=== PATIENT | female | born 2000 | race Caucasian/White ===

== ENCOUNTER 2019-09-26 09:01 | Day surgery (SDC) | payer OTHER, SELFPAY ==
[2019-05-13 13:04] VITALS: BMI 19.5
--- NOTE | 2019-09-11 08:24 | HP_ITS ---
Intake Intake Visit Reasons: L ABD PAIN/CT @ [facility] Chief Complaint: Belly pain and vomiting for last day Allergies No Known Allergies Allergy (Verified 09/10/19 14:35) Medications etonogestrel-ethinyl estradiol 0.12 mg -0.015 mg/24 hr vaginal ring 1 vag ring VAGINAL Q4W #1 ea 05/20/18 [Rx Confirmed 09/10/19] PFSH Medical History Appendicitis (Acute) Surgical History S/P appendectomy (Resolved) Family History Grandmother Diabetes Breast cancer Bone cancer Father Hypertension Social History (Updated 09/11/19 @ 08:24 by Lisy Marquez MD) Smoking Status: Never smoker alcohol intake: never substance use type: does not use caffeine: Yes what type of physical activity do you participate in: none seatbelt use: always do you feel safe at home: Yes additional social history: Single HPI HPI HPI: DESIREE NELSON, is a 18 F who presents to the office today for HPI HPI Surgical H&P: Yes HPI: DESIREE NELSON, is a 18 F who presents to the office today for lower abdominal pain/bilateral inguinal hernias. Patient states her constipation has been better does have a CAT scan from 08/27/1019 due to having episodes of lower abdominal pain. Patient did have some constipation on the CT. Patient states about 2 weeks ago she had some left lower quadrant pain that was between her umbilicus and groin and she did have several bowel movements after that night resolved within 3 to 4 hours. Patient also states that with activity she has bilateral groin pain she did notice during a 2 mile run for her PT testing she had some sharp left lower quadrant pain that was an 8/9 and she was not able to really complete her 2 mile run. Patient states she does take MiraLAX about 3 times a week has about 20 g of fiber daily has not been using stool softeners. Patient states she will occasionally see small bulge in the left groin which does go away on its own. ROS General General: No fatigue Cardio Cardiovascular: No chest pain Resp Respiratory: No shortness of breath Gastro Gastrointestinal: Yes abdominal pain, No nausea or vomiting, No diarrhea, Yes constipation, No blood in stool, No acid reflux, No hemorrhoids, No ulcers, No gallbladder problem Exam Const General: cooperative, comfortable, no acute distress Resp Effort & Inspection: normal respiratory effort Cardio Rate: regular rate GI Inspection: non-distended Palpation: soft, no guarding, nontender Other: Left inguinal: No obvious bulge or hernia on exam, right inguinal: No obvious bulge or hernia on exam. Patient did have inguinal hernias seen during her laparoscopic appendectomy. Assessment & Plan Problems 1. Bilateral lower abdominal pain R10.31; R10.32 2. Bilateral inguinal hernia K40.20 3. Constipation K59.00 Plan Patient continues to take MiraLAX about 3 times a week and does try to increase her fiber in her diet. Plan for laparoscopic bilateral inguinal hernia with mesh. Reviewed the procedure with the patient including the risks, including but not limited to infection, bleeding, paresthesia, chronic pain, injury to small bowel, and recurrence. All questions were answered. Patient no further questions this time. Lisy Marquez M.D. Pager: [phone] [facility] [address] [place] [address], [address] [place] [address] Office: [phone] Plan Detail Follow Up We will schedule surgery Coding Level of Care Code Off vis,est,level 3 Diagnoses Bilateral lower abdominal pain R10.31; R10.32 Bilateral inguinal hernia K40.20 Constipation K59.00 09/11/19 0824 <Electronically signed by Lisy Lemons am, MD> Date _ Lisy Marquez MD I have examined the patient the following changes are noted: Patient still having issues with constipation she did do a magnesium citrate yesterday however did not have much results but did state prior to yesterday she was not constipated.
[2019-09-26] VITALS (8 sets, daily range): BP systolic 110–140; BP diastolic 57–72; PULSE 58–109; RESP 15–16; TEMP 36.6–37; O2SAT 98–100; BMI 20.1
[2019-09-26 09:33] LABS: Internal QC Validated? YES +Cl - CLEAR BKGD; Pregnancy, Urine Negative Negative
[2019-09-26] MEDS: Lactated Ringers 1,000 ML 100 ML IV ×2 (09:39→13:21)
[2019-09-26] MEDS: Cefazolin 2 GM in 0.9% Normal Saline 100 ML IV (10:15)
--- NOTE | 2019-09-26 12:34 | OP.PCM_ITS ---
Report of Operation Date of Procedure: 09/26/19 Pre-Operative Diagnosis: Bilateral indirect inguinal hernias Post-Operative Diagnosis: Same Surgery/Procedure Performed:: Laparoscopic bilateral inguinal hernia repairs with mesh market research lead: Whitney Hampton Type of Anesthesia:: General/Supplemental Anesthesiologist: Zackary Sanchez Special Medications: Ancef 2 grams IV x1 Specimen's removed: None Estimated Blood Loss (mL): < 10 cc Fluids Replaced: 1150 cc Description of Procedure: Indications: 18-year-old female presented with bilateral inguinal hernias which were symptomatic. Laparoscopic bilateral inguinal hernia repair with mesh was elected patient was agreeable. Description of procedure: Patient was brought to operating room placed supine operative table. Timeout was completed verifying correct patient, procedure, site, positioning, special, prior to beginning procedure. General anesthesia was induced. Mishra catheter was placed. Patient's arms were tucked and padded appropriately. Midline infraumbilical incision was made with a 15 blade scalpel. The fascia was elevated and incised. Entry into the abdomen was confirmed visually. The Mosley trocar was placed. Laparoscope was placed. Verifying no injury during initial trocar placement. Patient was placed in Trendelenburg position. Two 5 mm trochars were placed lateral to the rectus sheath under direct visualization. Both the inguinal regions were inspected and bilateral indirect hernias were seen. Both procedures were done similarly. Started with the left inguinal hernia. The median umbilical ligament was divided sharply with electrocautery. Peritoneum was incised with the endoscopic scissors along a line 2 cm above the superior edge of the hernia defect extending from the median umbilical ligament to anterior superior iliac spine. Peritoneal flap was mobilized inferiorly using blunt and sharp dissection. The inferior epigastric vessels were exposed and symphysis pubis and identified. Geronimo's ligament was identified. Dissection was continued inferiorly to the iliopubic track with care taken to avoid injury to the femoral branch of the genitofemoral nerve and lateral femoral cutaneous nerve. Round ligament was identified and clips were placed and it was divided. The indirect hernia sac was mobilized and reduced into the peritoneal cavity. A large size Bard 3D max mesh left was used. The mesh was rolled longitudinally into a compact cylinder and passed through the trocar. The cylinder was placed along the inferior aspect of the working space and unrolled into place to completely cover the direct, indirect and femoral spaces. The mesh was secured in place medially to Geronimo's ligament using the pro- tacker as well as to the anterior abdominal wall. Care was taken to avoid the inferolateral triangle containing iliac vessels and genital nerves. The right side was done similarly. The Bard 3D max mesh medium right was used. Again this was tacked with a pro-tacker to Geronimo's ligament medially and laterally and superiorly to the anterior abdominal wall. The peritoneal flap was closed over both meshes and secured with tacks in similar positions of safety using the SecureStrap. After ensuring adequate hemostasis, the trochars were removed and pneumoperitoneum allowed to escape. The infraumbilical trocar incision was closed with a 0 Vicryl figure of 8 suture. The skin was closed with 4-0 Monocryl interrupted sutures and Steri-Strips. Patient tolerated procedure well was taken to the postanesthesia care unit in stable condition. Grafts/Implants Used: Left large Bard 3D max lot [id number] REF [id number], right medium Bard 3D max lot [id number] [id number] Grafts/Implants Used: Left large Bard 3D max lot [id number], right medium Bard 3D max [id number] - Complications none
--- NOTE | 2019-09-26 12:36 | DCINST_ITS ---
Discharge Diet: Light diet - advance as tolerated Discharge Activity: May not drive while taking narcotic pain medications. Lifting Restrictions: No lifting greater than 20 pounds x 2 weeks Call your doctor if your incision/area has: Continuous Slow Oozing, Sudden Increased Bleeding, Increased Pain/ Swelling, Increased Redness, Foul Smelling Discharge, Swelling at the incision site Call your doctor if you observe: Fever of 101 or Higher Remove Dressing in (days):: 1 Additional Instructions: Okay to take ibuprofen 400-600 mg PO q6hr PRN along with the Percocet. Avoid Tylenol since there is already Tylenol in the Percocet. Take all pain meds with food. Percocet can cause constipation recommend taking daily stool softener (i.e. Colace/docusate) while taking the pain meds. Recommend starting some MiraLAX or Dulcolax today if no bowel movement. If still no bowel movement in 1 to 2 days recommend taking magnesium citrate or additional Dulcolax half the bottle and waiting 4-6 hours if still no results take the other half the bottle. Allergies/Adverse Reactions: Allergies No Known Allergies Allergy (Verified 09/26/19 09:21) Medications to take at Discharge Oxycodone HCl/Acetaminophen [Percocet 5/325] 1 - 2 tablet PO Q6H PRN PRN 4 Days #20 tablet 09/26/19 Primary Care Physician: Nikita Murrell MD [Primary Care Provider] - Test Results: Test results from this visit will be discussed in further detail at your follow- up appointment, if applicable. Please Follow Up With: Lisy Marquez MD
[2019-09-26] MEDS: Bupivacaine Mpf 0.5% 30 ML VIAL (12:41)
--- NOTE | 2019-09-26 12:41 | PCM.DC.HER ---
Discharge Diet: No Restrictions Discharge Activity: May not drive while taking narcotic pain medications. Ice area for (Minutes): 20 - PRN Lifting Restrictions: No lifting greater 20 pounds x 2 weeks Call your doctor if your incision/area has: Continuous Slow Oozing, Sudden Increased Bleeding, Increased Pain/ Swelling, Increased Redness, Foul Smelling Discharge, Swelling at the incision site Call your doctor if you observe: Fever of 101 or Higher Remove Dressing in (days):: 1 Additional Instructions: Okay to take ibuprofen 400-600 mg PO q6hr PRN along with the Percocet. Avoid Tylenol since there is already Tylenol in the Percocet. Take all pain meds with food. Percocet can cause constipation recommend taking daily stool softener (i.e. Colace/docusate) while taking the pain meds. Recommend starting some MiraLAX Dulcolax tabs today and tomorrow if no bowel movement. If still no bowel movement the following day recommend taking couple Dulcolax tabs or magnesium citrate half the bottle and waiting 4-6 hours if still no results take the other half the bottle. Allergies/Adverse Reactions: Allergies No Known Allergies Allergy (Verified 09/26/19 09:21) Medications to take at Discharge Oxycodone HCl/Acetaminophen [Percocet 5/325] 1 - 2 tab PO Q6H PRN PRN 4 Days #20 tab 09/26/19 The following prescriptions were given: Oxycodone HCl/Acetaminophen [Percocet 5/325] 1 - 2 tab PO Q6H PRN PRN 4 Days #20 tab PRN Reason: Pain Transmission Status: Received by [id number] Primary Care Physician: Nikita Murrell MD [Primary Care Provider] - Test Results: Test results from this visit will be discussed in further detail at your follow-up appointment, if applicable. Please Follow Up With: Lisy Marquez MD - At 5:00 on the weekends call [phone] with any concerns When: Call the office for follow-up appointment 2 weeks Proposed Discharge Date: 09/26/19
[2019-09-26] MEDS: oxyCODONE 5 MG Tablet PO (16:11)
[2019-09-26] MEDS: Acetaminophen 325 MG Tablet PO (16:11)
== END 2019-09-26 16:50 | disposition home or self-care (01) ==
LOC: SDC 09:05 → AC 09:05
PROVIDERS: Anesthesiology; Referring Provider Surgery; Visit Provider Surgery
PROC: (CPT 49650; principal; 2019-09-26 10:10)
DX: K40.20 Bilateral inguinal hernia, without obstruction or gangrene, not specified as recurrent (principal)
CPT/HCPCS: 49650; 81025; J7120; C1781; J1610; J2405